=== PATIENT | male | born 1980 | race Caucasian/White ===

== ENCOUNTER 2019-06-04 17:32 | Emergency (ER) | payer SELFPAY ==
[~2019-06-04] VITALS: Ht 185.4 cm; Wt 113.5 kg
[2019-06-04 17:37] VITALS: BP 142/72
[2019-06-04 17:44] VITALS: BP 142/72
--- NOTE | 2019-06-04 18:45 | NUR ---
PATIENT LEFT WITHOUT BEING SEEN BY DR. FLORES. NO FURTHER CARE PROVIDED FOR PATIENT.
--- NOTE | 2019-06-04 18:45 | NUR ---
PT CALLED FOR BED, NO ANSWER AT THIS TIME
--- NOTE | 2019-06-04 19:00 | NUR ---
PT CALLED FOR BED, NO ANSWER AT THIS TIME
--- NOTE | 2019-06-04 19:27 | NUR ---
PT CALLED FOR ROOM WITH NO ANSWER, LWBS AT THIS TIME
== END 2019-06-04 18:45 | disposition left against medical advice (07) ==
LOC: MED 17:32
DX: R63.1 Polydipsia (principal); Z53.21 Procedure and treatment not carried out due to patient leaving prior to being seen by health care provider